=== PATIENT | male | born 1960 | race African-American/Black ===

== ENCOUNTER 2016-04-20 11:26 | Emergency (ER) | payer BC ==
[~2016-04-20 11:26] MED LIST: BP MED; BYETTA; COREG25 PO; FLONASE NAS; FOLINIC PLUS PO; GLUCOPHAGE1000 MG PO; GLUCPH8 PO; HUMALOG SC; HYTRIN10 MG PO; KDUR20 PO; L20 PO; L40 PO; LANTUS SC; LIPITOR40 PO; LISINOPRIL40 MG PO; NEUR300 PO; PLAVIX PO; RESTASIS OPH; VITAMIN D1000 UNI1 PO; [UNRECOGNIZED DRUG - REMARK]; [UNRECOGNIZED DRUG - REMARK]
== END 2016-04-20 11:35 | disposition home or self-care (01) ==
LOC: ER 11:26
DX: M79.644 Pain in right finger(s) (principal); I10 Essential (primary) hypertension; E11.9 Type 2 diabetes mellitus without complications; F17.200 Nicotine dependence, unspecified, uncomplicated; Z88.5 Allergy status to narcotic agent; Z79.4 Long term (current) use of insulin; Z79.84 Long term (current) use of oral hypoglycemic drugs; Z79.899 Other long term (current) drug therapy
CPT/HCPCS: 73140-RT; 99284

== ENCOUNTER 2016-04-28 10:59 | Emergency (ER) | payer BC | END 2016-04-28 11:00 | disposition home or self-care (01) | LOC: ER 10:59 | DX: M79.644 Pain in right finger(s) (principal); I10 Essential (primary) hypertension; E11.9 Type 2 diabetes mellitus without complications; F17.200 Nicotine dependence, unspecified, uncomplicated; Z88.6 Allergy status to analgesic agent; Z79.4 Long term (current) use of insulin; Z79.84 Long term (current) use of oral hypoglycemic drugs; Z79.899 Other long term (current) drug therapy | CPT/HCPCS: 99284 ==